=== PATIENT | male | born 1990 | race Caucasian/White ===

== ENCOUNTER → 2019-12-08 14:26 | Outpatient (BNVA) | payer OTHER, SELFPAY | PROVIDERS: Family Provider Family Medicine; Referring Provider Family Medicine; Visit Provider Orthopaedic Surgery | DX: M25.561 Pain in right knee (principal); M25.562 Pain in left knee; M17.0 Bilateral primary osteoarthritis of knee | CPT/HCPCS: 73560; 73565 ==

== ENCOUNTER → 2019-12-19 09:05 | Outpatient (BNVA) | payer OTHER, SELFPAY | PROVIDERS: Family Provider Family Medicine; Referring Provider Family Medicine; Visit Provider Podiatrist Foot & Ankle Surgery | DX: M79.671 Pain in right foot (principal); M79.672 Pain in left foot; M25.571 Pain in right ankle and joints of right foot; M25.572 Pain in left ankle and joints of left foot; M21.42 Flat foot [pes planus] (acquired), left foot; M21.41 Flat foot [pes planus] (acquired), right foot | CPT/HCPCS: 73600; 73630 ==

== ENCOUNTER 2020-02-20 13:59 | Outpatient (CLI) | payer OTHER, SELFPAY | END 2020-02-20 14:00 | disposition home or self-care (01) | LOC: SPT 14:00 | PROVIDERS: Family Provider Family Medicine; Visit Provider Podiatrist Foot & Ankle Surgery | DX: M25.571 Pain in right ankle and joints of right foot (principal); M25.572 Pain in left ankle and joints of left foot; M21.41 Flat foot [pes planus] (acquired), right foot; M21.42 Flat foot [pes planus] (acquired), left foot | CPT/HCPCS: L3030 ==

== ENCOUNTER 2021-12-29 04:23 | Emergency (ER) | payer OTHER, SELFPAY ==
[2021-12-29 04:24] VITALS: BP 156/108; PULSE 111; RESP 18; TEMP 36.7; O2SAT 97; BMI 35.2
[2021-12-29 04:32] VITALS: BP 156/108; PULSE 88; RESP 18; TEMP 36.7; O2SAT 98
--- NOTE | 2021-12-29 04:53 | XRR_ITS ---
PROCEDURE INFORMATION: Exam: XR Lumbosacral Spine Exam date and time: 12/29/2021 5:16 AM Age: 31 years old Clinical indication: Low back pain TECHNIQUE: Imaging protocol: XR of the lumbosacral spine. Views: 2 or 3 views. COMPARISON: No relevant prior studies available. FINDINGS: Bones/joints: Slight thoracolumbar levoscoliosis. No spondylolisthesis or spondylolysis. No acute fracture demonstrated. Normal vertebral body height. Soft tissues: No significant soft tissue abnormalities. XR/XR lumbar spine 2-3V* [id number] IMPRESSION: 1. No acute abnormality demonstrated. 2. Slight thoracolumbar levoscoliosis.
[2021-12-29] MEDS: orphenadrine 30 mg/mL Inj 2 mL 60 MG IM (05:00)
[2021-12-29 05:01] VITALS: RESP 18
[2021-12-29] MEDS: HYDROmorphone 1 mg/mL INJ 1 mL 2 MG IM (05:01)
[2021-12-29] MEDS: predniSONE 20 mg Tablet 60 MG PO (05:02)
[2021-12-29 06:11] VITALS: BP 154/80; PULSE 85; RESP 18; O2SAT 98
--- NOTE | 2021-12-29 18:24 | W.ED.BACK ---
HPI - Back Pain/Injury General: Chief Complaint: Back Pain/Injury Stated Complaint: BACK PAIN Time Seen by Provider: 12/29/21 04:35 Source: patient History of Present Illness: 31-year-old male who has had 3 episodes of sudden onset of back pain of late. The first was after bending over, and felt sudden onset back pain with radiation into his thighs. He visited the chiropractor, which helped resolve essentially that pain. He was still mildly sore. Another episode happened with a sneezing fit, with reproduction of the same pain. He again visited the chiropractor with relief. This morning, he coughed, with resurgence of the same pain, only this time it has been more excruciating. He is having trouble walking due to pain. He is not overly weak. There is no numbness or tingling. He does have pain radiating into both thighs pain is located he says just above my hips . No images have been taken. There has been no urinary retention or incontinence, either fecal or urinary MD elicited complaint: back pain Pertinent past history: prior back pain Quality: stabbing Location: lumbar spine Radiation: left upper leg and right upper leg Exacerbating factors: coughing/sneezing Relieving factors: none Context: other Associated symptoms: Reports difficulty walking and nausea; Deny abdominal pain, arthralgias, chills, dysuria, fecal incontinence, hematuria, tingling/numbness/burning, urinary frequency or urinary urgency Review of Systems Const: Denies: chills Card: Denies: chest pain Resp: Denies: dyspnea GI: Reports: nausea; Denies: abdominal pain or fecal incontinence : Denies: dysuria, urinary urgency or hematuria Musc: Reports: back pain; Denies: neck pain Skin/Breast: Denies: rash Neuro: Reports: difficulty walking; Denies: headache(s) [facility] ED PFSH: Medical History Psychiatric care Family History Other Cancer Diabetes Psychiatric illness Social History Smoking and tobacco status: current every day smoker cigarettes Packs smoked per day: 0.75 Years cigarettes smoked: 20 Quit status (tobacco): has tried quititng Number of times tried to quit tobacco: 10 Second hand smoke exposure: Yes Alcohol intake: current Alcohol intake frequency: holidays/special occasions only Physical Exam Const: GENERAL APPEARANCE: cooperative, well developed and in distress (From pain) HENMT: COMMON NORMALS: normocephalic, atraumatic and Normal external nose present HEAD & SCALP: normocephalic and atraumatic FACE & SINUS: normal facial exam NOSE: Normal external nose present Eye: COMMON NORMALS: Equal, round and reactive pupils present and EOMs intact bilaterally PUPIL: Yes Equal, round and reactive pupils present Neck/C-Spine: COMMON NORMALS: full ROM Chest: COMMONS NORMALS: normal inspection of the chest CHEST: Yes Symmetrical chest wall rise Resp: COMMON NORMALS: normal respiratory effort, No use of accessory muscles and clear to auscultation bilaterally AUSCULTATION: clear to auscultation bilaterally Cardio: COMMON NORMALS: regular rate and regular rhythm RATE: regular rate RHYTHM: regular rhythm GI: COMMON NORMALS: Normal to inspection, nondistended, normoactive bowel sounds present and Soft to palpation PALPATION: Yes Soft to palpation Back/Pelvis: LUMBAR SPINE/LOWER BACK: Yes normal to inspection, Yes lumbar spinal tenderness, Yes paraspinal muscle spasm and Yes straight leg raise negative bilaterally Extremity: COMMON NORMALS: normal to inspection Neuro: [place] COMA SCALE: document [facility] findings [place] coma scale eye opening: Spontaneous [place] coma scale verbal response: Orientated [place] coma scale motor response: Obey commands [place] coma scale total score: 15 SENSORY EXAM: Yes extremities (Intact) MOTOR EXAM: 5/5 motor strength present throughout Course Vital Signs: Vital signs: Vital Signs Temperature 98.1 F 12/29/21 04:32 Pulse Rate 85 12/29/21 06:11 Respiratory Rate 18 12/29/21 06:11 Blood Pressure 154/80 12/29/21 06:11 Pulse Oximetry 98 12/29/21 06:11 MDM - Back Pain/Injury Medical Decision Making Lumbar spine films are essentially normal. No significant disc space narrowing. Patient is improved after administration of pain medication and antispasmodic. We will place him on steroids, pain relievers, muscle relaxers. Encouraged chiropractic follow-up versus PCP follow-up. Labs Radiology Impressions Lumbar Spine X-Ray 12/29/21 04:53 IMPRESSION: 1. No acute abnormality demonstrated. 2. Slight thoracolumbar levoscoliosis. Discharge Plan Discharge Patient Disposition: Home Clinical Impression: Lumbar radiculopathy Condition: Stable Prescriptions: New Percocet 7.5-325 mg tablet 1 tab PO Q6H PRN (Reason: pain) Qty: 10 0RF Medrol (Fransico) 4 mg tablets,dose pack See Rx Instructions .ROUTE .COMPLEX Qty: 21 0RF Rx Instructions: orally per package directions tizanidine 4 mg tablet 4 mg PO Q8H PRN (Reason: muscle spasticity) Qty: 10 0RF No Action Mariajose Back and Body 500-32.5 mg tablet PO BID PRN0RF (DME) Sole supports See Rx Instructions .Route .MEDSUPPLY Qty: 1 0RF Rx Instructions: As directed diphenhydramine HCl [Benadryl] 25 mg capsule 25 mg PO DAILY 0RF bupropion HCl [Wellbutrin XL] 150 mg tablet extended release 24 hr 150 mg PO QAM Qty: 30 2RF fluoxetine [Prozac] 20 mg capsule 20 mg PO DAILY Qty: 30 2RF Discharge Orders: Discharge ED (Routine); Ordered 12/29/21 Ordered By: Cali Horton Referrals: Umm Miles MD [Primary Care Provider] - 1-3 days Patient Instructions: Lumbar Radiculopathy (ED), Opioid Safety Activity Restrictions/Additional Instructions: Return for inability to urinate, significant numbness to the groin or genital area, worsening pain despite treatment, other concerning symptoms. See your doctor early next week. As prior, adult live in caregiver may help. 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
== END 2021-12-29 06:18 | disposition home or self-care (01) ==
PROVIDERS: Emergency Provider Emergency Medicine; PCP Family Medicine
DX: M54.16 Radiculopathy, lumbar region (principal); F17.210 Nicotine dependence, cigarettes, uncomplicated
CPT/HCPCS: 72100; 96372; 99283; J1170; J2360; J7512